=== PATIENT | female | born 2000 | race Hispanic/Latino ===

== ENCOUNTER 2023-06-08 00:16 | Observation (INO) | payer OTHER ==
[2023-06-08] VITALS (11 sets, daily range): BP systolic 90–119; BP diastolic 47–66; PULSE 76–102; RESP 17–21; TEMP 97.6–97.9; O2SAT 95–100
[~2023-06-08] VITALS: Ht 160 cm; Wt 136.1 kg
[2023-06-08] MEDS: ALBUTEROL/IPRATROPIUM 3 ML NEB NEB ONE (00:32)
[2023-06-08] MEDS: PREDNISONE 20 MG TAB PO STA (01:01)
[2023-06-08] MEDS: ALBUTEROL/IPRATROPIUM 3 ML NEB NEB STA ×2 (01:04)
[2023-06-08 01:08] LABS: INFLUENZAE A&B ANTIGEN (RAPID) NEGATIVE (NEGATIVE)
[2023-06-08 01:09] LABS: RESPIRATORY SYNC. VIRUS POSITIVE (NEGATIVE)
[2023-06-08] MEDS: SODIUM CHLORIDE 0.9% 1000ML 1,000 ML IV SCH (03:32)
[2023-06-08] MEDS: MAGNESIUM SULF 1GRAM/DEXTROSE 100 ML IV ONE (03:32)
[2023-06-08] MEDS: METHYLPREDNISOLONE SOD SUCC 40 MG/ML VIAL 1ML IV SCH (05:53)
[2023-06-08 06:52] LABS: BASOPHILS # (AUTO) 0.1 (0.0-0.1); BASOPHILS % 0.7 % (0.0-1.0); EOSINOPHILS # (AUTO) 0.1 (0.0-0.4); EOSINOPHILS % 1.4 % (0.0-6.0); HEMATOCRIT 37.7 % (34.2-44.1); HEMOGLOBIN 12.4 g/dL (12.0-16.0); LYMPHOCYTES # (AUTO) 1.1 (1.0-3.2); LYMPHOCYTES % 14.6 % (18.0-39.1); MEAN CORPUSCULAR HEMOGLOBIN 30.3 pg (28-32); MEAN CORPUSCULAR HGB CONC 32.9 g/dL (31-35); MEAN CORPUSCULAR VOLUME 92.2 fL (81-99); MONOCYTES # (AUTO) 0.2 (0.2-0.8); MONOCYTES % 2.6 % (4.4-11.3); NEUTROPHILS # (AUTO) 6.1 (2.1-6.9); NEUTROPHILS % 80.2 % (38.7-80.0); PLATELET COUNT 213 x10e3/uL (140-360); RED BLOOD COUNT 4.09 x10e6/uL (3.6-5.1); WHITE BLOOD COUNT 7.62 x10e3/uL (4.8-10.8)
[2023-06-08 07:12] LABS: ALBUMIN/GLOBULIN RATIO 1.1 (0.8-2.0); ANION GAP 16.2 mmol/L (8-16); BILIRUBIN,TOTAL 0.5 mg/dL (0.2-1.2); CALCIUM 9.3 mg/dL (8.4-10.2); CREATININE, SERUM 0.78 mg/dL (0.57-1.11); POTASSIUM 4.2 mmol/L (3.5-5.1); TOTAL PROTEIN 7.6 g/dL (6.5-8.1)
[2023-06-08] MEDS: ALBUTEROL SULF 0.083% NEB SOLN 3 ML NEB NEB PRN (08:30)
[2023-06-08] MEDS ORDERED: ALBUTEROL 90 MCG/ACT INHALER INH PRN (13:15)
[2023-06-08] MEDS: SALMETEROL XINAF/FLUTICASONE 250/50 MCG INHALER INH SCH (14:38)
[2023-06-09] MEDS ORDERED: PREDNISONE20 MG PO (09:07)
== END 2023-06-08 18:25 | disposition home or self-care (01) ==
LOC: ER 00:21 → ERHOLD 02:12 → MED/SURG2 02:50
PROVIDERS: ADMIT Internal Medicine; ATTEND Internal Medicine
DX: J45.901 Unspecified asthma with (acute) exacerbation (principal); J21.0 Acute bronchiolitis due to respiratory syncytial virus; Z11.52 Encounter for screening for COVID-19; Z82.5 Family history of asthma and other chronic lower respiratory diseases
CPT/HCPCS: 36415; 71045; 80053; 85025; 87400; 87420; 94640; 94799; 99284; G0378; J2920; J3475; J7030; J7512; U0002